=== PATIENT | female | born 1960 | race Caucasian/White ===

== ENCOUNTER 2021-01-18 11:56 | Emergency (ER) | payer OTHER, SELFPAY ==
[~2021-01-18] VITALS: Ht 165.1 cm; Wt 86.4 kg
[2021-01-18] MEDS ORDERED: LEVO50TA5 PA (12:32)
[2021-01-18] MEDS ORDERED: OMEP40CA4 PO (12:32)
[2021-01-18] MEDS ORDERED: BIOT10009 PO (12:32)
[2021-01-18] MEDS ORDERED: FISH1000 PO (12:32)
[2021-01-18] MEDS ORDERED: FOLI1TAB11 PO (12:32)
[2021-01-18] MEDS ORDERED: CALCCAP4 PO (12:32)
[2021-01-18] MEDS ORDERED: LOSA25TA14 PO (12:32)
[2021-01-18] MEDS ORDERED: ATOR40TA75 PO (12:32)
[2021-01-18] MEDS ORDERED: AMLO10TA PO (12:32)
--- NOTE | 2021-01-18 12:43 | REP ---
INDICATION: fall, trauma to head COMPARISON: None. TECHNIQUE: Axial noncontrast images from the skull base to the thoracic inlet with coronal reformations. This CT examination was performed using the following dose reduction techniques: Automated exposure control, adjustment of mA and/or kv according to the patient's size, and use of iterative reconstruction technique. FINDINGS: Atrophy with periventricular leukomalacia and microvascular ischemic changes are appreciated. The ventricles and sulci are symmetric. Dumont-white differentiation is maintained. There is no evidence for acute intracranial hemorrhage, mass/mass effect, pathology or infarction. No extra-axial fluid collection. Calvarium is intact. Paranasal sinuses and mastoid air cells are clear. IMPRESSION: Atrophy and microvascular ischemic changes. No acute intracranial hemorrhage, infarction, or mass/mass effect. <Electronically signed by David Angel > 01/18/21 [id number]
[2021-01-18] MEDS ORDERED: LIDOCAINE 4% CREAM 5GM (LMX4) TOP ONE (12:45)
[2021-01-18] MEDS ORDERED: MORPHINE 4 MG/ML 1ML VIAL/SYRINGE (J2270) IV ONE ×2 (12:45→15:20)
--- NOTE | 2021-01-18 12:48 | REP ---
INDICATION: fall, trauma to head COMPARISON: None. TECHNIQUE: Axial noncontrast images from the skull base to the thoracic inlet with coronal and sagittal re-formations This CT examination was performed using the following dose reduction techniques: Automated exposure control, adjustment of mA and/or kv according to the patient's size, and use of iterative reconstruction technique. FINDINGS: There is a nondisplaced fracture involving the right lateral process of C6 (series 301; images 58-62). Remainder of the C6 vertebral body is intact and demonstrates degenerative changes. The fracture is stable. The adjacent paravertebral soft tissues are normal. Alignment is maintained throughout the cervical spine. Moderate multilevel degenerative changes are also identified. Spinal canal is patent. Posterior elements and spinous processes are intact. Paravertebral soft tissues are normal. IMPRESSION: Subtle nondisplaced stable appearing fracture involving the right lateral process of C6. Moderate multilevel degenerative changes. <Electronically signed by David Angel > 01/18/21 [id number]
[2021-01-18] MEDS ORDERED: ONDANSETRON 4MG/2ML VIAL As Ordered ONE (13:27)
[2021-01-18] MEDS ORDERED: ONDANSETRON 4MG/2ML VIAL IV ONE (13:30)
--- NOTE | 2021-01-18 14:08 | REP ---
INDICATION: pain t1-T4 s/p fall. COMPARISON: None. TECHNIQUE: Axial noncontrast images of the thoracic spine with coronal and sagittal reformations. FINDINGS: Thoracic vertebral bodies are intact and without acute fracture/compression injury or subluxation. Alignment and kyphosis maintained. Age-related changes include endplate sclerosis with marginal osteophytosis. Spinal canal is patent. Posterior elements and spinous processes are intact. IMPRESSION: Mild generalized age-related changes. <Electronically signed by David Angel > 01/18/21 [id number]
[2021-01-18 14:49] LABS: BASO # 0.1 10^3/uL (0.0-0.2); BASO % 0.4 % (0.0-1.0); EOS # 0.1 10^3/uL (0.0-0.5); EOS % 0.8 % (0.0-3.0); HEMATOCRIT 41.6 % (36.0-47.0); LYMPH # 1.7 10^3/uL (1.5-5.0); LYMPH % 11.6 % (24.0-44.0); MEAN CORPUSCULAR HEMOGLOBIN 31.7 pg (27.0-33.0); MEAN CORPUSCULAR HGB CONC 33.7 g/dl (32.0-36.5); MEAN CORPUSCULAR VOLUME 94.3 fl (80.0-96.0); MONO # 0.7 10^3/uL (0.0-0.8); NEUTROPHILS # 11.5 10^3/uL (1.5-8.5); NEUTROPHILS % 80.8 % (36.0-66.0); PLATELET COUNT, AUTOMATED 208 10^3/uL (150-450); RED BLOOD COUNT 4.41 10^6/uL (4.00-5.40); WHITE BLOOD COUNT 14.3 10^3/uL (4.0-10.0)
--- NOTE | 2021-01-18 14:57 | REP ---
INDICATION: pain s/p fall COMPARISON: None. TECHNIQUE: Internal rotation, external rotation, and Y view. FINDINGS: No acute fracture or dislocation. The acromioclavicular and glenohumeral joints are intact. No periarticular calcifications or degenerative changes are appreciated. Sub acromial space is normal. Surrounding soft tissues are unremarkable. IMPRESSION: Normal age-appropriate right shoulder radiographs. <Electronically signed by David Angel > 01/18/21 [id number]
--- NOTE | 2021-01-18 14:58 | REP ---
INDICATION: pain s/p fall COMPARISON: None. TECHNIQUE: AP and lateral views of the right humerus. FINDINGS: Age-related osteopenia and degenerative changes are appreciated. No obvious acute fracture or dislocation identified. IMPRESSION: No obvious acute fracture or dislocation. <Electronically signed by David Angel > 01/18/21 [id number]
[2021-01-18 14:59] LABS: INR 0.95; PROTHROMBIN TIME 13.1 SECONDS (12.7-14.5)
[2021-01-18 15:00] LABS: PARTIAL THROMBOPLASTIN TIME 27.5 SECONDS (25.9-37.0)
--- NOTE | 2021-01-18 15:00 | REP ---
INDICATION: pain s/p fall COMPARISON: None. TECHNIQUE: AP, lateral, bilateral oblique views of the right elbow. FINDINGS: Age-related osteopenia and degenerative changes are appreciated. No obvious acute fracture or dislocation. No effusion. IMPRESSION: Age-related changes. No acute fracture or dislocation. <Electronically signed by David Angel > 01/18/21 [id number]
[2021-01-18 15:03] LABS: CREATININE FOR GFR 1.35 MG/DL (0.55-1.30); GLOMERULAR FILTRATION RATE 42.3 (>45); POTASSIUM SERUM 4.4 MEQ/L (3.5-5.1)
[2021-01-18] MEDS ORDERED: diazePAM 5MG TABLET PO ONE (15:20)
[2021-01-18 15:52] LABS: RSV AMPLIFICATION NEGATIVE (NEGATIVE)
[2021-01-18 17:23] VITALS: BP 145/82
--- NOTE | 2021-01-18 17:41 | REP ---
INDICATION: SOB, wheezing, eval for pneumonia COMPARISON: None. TECHNIQUE: Portable AP view of the chest FINDINGS: The mediastinum and cardiac silhouette are within normal limits for portable technique. The lung farn[place] are clear without acute consolidation, effusion, or pneumothorax. Skeletal structures are intact. IMPRESSION: No acute cardiopulmonary process appreciated. <Electronically signed by David Angel > 01/18/21 [id number]
--- NOTE | 2021-01-18 17:52 | REPVR ---
PROCEDURE INFORMATION: Exam: MR Cervical Spine Without Contrast Exam date and time: 01/18/2021 4:26 PM Age: 60 years old Clinical indication: Trauma; Fall; Fracture, traumatic injury; nondisplaced right C7 facet/pars interarticularis fracture present on prior CT. TECHNIQUE: Imaging protocol: Multiplanar magnetic resonance images of the cervical spine without contrast. COMPARISON: CT Spine,cervical w/o contrast 01/18/2021 12:15 PM FINDINGS: Cervical vertebral body heights are intact. Straightening of the cervical lordosis. The dens is intact. Partial osseous fusion of the C2 and C3 vertebral levels. Known fracture of the right C7 superior facet/pars interarticularis is better visualized on prior CT. No cord compression, expansion, or abnormal cord signal. Visualized structures of the posterior fossa are unremarkable. Soft tissues are unremarkable. C2-C3: No significant canal or foraminal narrowing. C3-C4: Uncovertebral spurring and facet hypertrophy cause severe left and moderate right foraminal narrowing. No significant canal narrowing. C4-C5: Uncovertebral spurring causes mild right and moderate left foraminal narrowing. No significant canal narrowing. C5-C6: Uncovertebral spurring causes moderate left foraminal narrowing. Small central disc protrusion causing focal mild canal narrowing. C6-C7: Posterior disc protrusion and uncovertebral spurring cause severe bilateral foraminal narrowing. Mild canal narrowing. C7-T1: No significant canal or foraminal narrowing. IMPRESSION: 1. No MR evidence of acute spinal cord injury. 2. Known fracture of the right C7 superior facet/pars interarticularis is better visualized on prior CT. 3. Spondylotic changes of the cervical spine, as detailed above. Electronically signed by: Adam Gabriel On 01/18/2021 17:52:00 PM
== END 2021-01-18 17:25 | disposition short-term general hospital (02) ==
LOC: M ED 11:56
DX: S12.501A Unspecified nondisplaced fracture of sixth cervical vertebra, initial encounter for closed fracture (principal); S01.01XA Laceration without foreign body of scalp, initial encounter; W18.39XA Other fall on same level, initial encounter; Y92.512 Supermarket, store or market as the place of occurrence of the external cause; E03.9 Hypothyroidism, unspecified; K22.70 Barrett's esophagus without dysplasia; G40.909 Epilepsy, unspecified, not intractable, without status epilepticus; M79.7 Fibromyalgia; Z88.1 Allergy status to other antibiotic agents
CPT/HCPCS: 12002; 70450; 71045; 72125; 72128; 72141; 73030; 73060; 73080; 80048; 85025; 85610; 85730; 87631; 96374; 96375; 96376; 99284; J2270; J2405